=== PATIENT | female | born 1950 | race Caucasian/White ===

== ENCOUNTER 2016-11-28 10:28 | Inpatient (IN) | payer MEDICARE, OTHER ==
[2016-11-14 16:20] LABS: WBC (NOT ORDERED) (RFLEX) 0 (0-5)
[2016-11-14 17:08] LABS: BASOPHILS 0.4 %; BASOPHILS ABSOLUTE 0.04 10/3/uL (0.0-0.16); EOSINOPHILS 3.7 %; EOSINOPHILS ABSOLUTE 0.37 10/3/uL (0.0-0.53); IMMATURE GRANULOCYTES 0.4 %; IMMATURE GRANULOCYTES ABSOLUTE 0.04 10/3/uL (0.0-0.11); LYMPHOCYTES 24.3 %; LYMPHOCYTES ABSOLUTE 2.41 10/3/uL (0.67-4.30); MEAN CORPUS HGB CONC 33.5 g/dL (32.0-36.0); MEAN CORPUSCULAR HEMOGLOB 30.2 pg (26.0-34.0); MEAN PLATELET VOLUME 9.2 fL (9.2-13.0); MONOCYTES 9.3 %; MONOCYTES ABSOLUTE 0.92 10/3/uL (0.21-1.20); NEUTROPHILS 61.9 %; NEUTROPHILS ABSOLUTE 6.14 10/3/uL (2.02-8.40); PLATELET COUNT 289 10/3/uL (150-400); WHITE BLOOD CELLS 9.9 10/3/uL (4.5-10.5)
[2016-11-14 17:10] LABS: HEMATOCRIT 38.2 % (36.0-48.0); HEMOGLOBIN 12.8 g/dL (12.0-16.0); MANUAL DIFF NO %; MEAN CORPUSCULAR VOLUME 90.1 fL (80-100); RED CELL COUNT 4.24 10/6/uL (4.0-5.6)
[2016-11-14 17:16] LABS: INTERNATIONAL NORMAL RATI 1.1 UNITS (-); PROTIME (NOT ORD) 14.2 SEC (12.0-14.5)
[2016-11-14 17:28] LABS: A/G RATIO 0.9 (0.7-1.9); ALBUMIN 3.3 G/DL (3.5-5.0); ALKALINE PHOSPHATASE 72 U/L (45-117); BUN (BLOOD UREA NITROGEN) 16 MG/DL (6-23); CALCIUM, SERUM 8.7 MG/DL (8.5-10.4); CHLORIDE, SERUM 109 MMOL/L (96-112); CO2 (CARBON DIOXIDE) 27 MMOL/L (24-34); CREATININE 1.12 MG/DL (0.55-1.02); GFR AFRICAN AMERICAN 60 ML/MIN (>=60); GFR NON AFRICAN AMERICAN 52 ML/MIN (>=60); GLOBULIN 3.7 G/DL (2.5-4.1); GLUCOSE, SERUM 91 MG/DL (60-99); SGOT(AST) 19 U/L (5-40); SGPT(ALT) 20 U/L (5-65); SODIUM, SERUM 142 MMOL/L (135-148); TOTAL BILIRUBIN 0.2 MG/DL (0-1.2)
[2016-11-14 17:56] LABS: ASCORBIC ACID (UR NOT ORDER) 40 (NEG); BILIRUBIN, URINE NEGATIVE (NEG); KETONE, URINE NEGATIVE (NEG); LEUKOCYTE ESTERASE(NOT OR NEG (NEG)
--- NOTE | ~2016-11-28 | DS ---
Discharge Summary [facility] [address] [place]. [address] NAME: TIFFANIE JIMENEZ : 52 STATUS : DIS IN PAT#: [id number] AGE: 66 ADM/REG DATE : 11/28/16 MR#: [id number] REPORT SERV DATE: 12/14/16 DICTATED BY: MAGGI HARDING DATE: 12/13/16 REPORT STATUS : Draft TRANSCRIBED BY: ABEL DATE: 12/13/16 Data Collection from hospitalization DISCHARGE DIAGNOSES: 1. Severe right knee degenerative joint disease. 2. Hypertension. 3. Former smoker. 4. Gastroesophageal reflux disease. 5. Hypothyroidism. CONSULTATION: Dr. Jordi Hernandez. PROCEDURES PERFORMED: 1. Right posterior stabilized total knee replacement, cemented, 11/28/2016. 2. Cardiac catheterization, 11/30/2016. 3. Myocardial perfusion imaging study, 11/29/2016. PATHOLOGY: Bone and soft tissue, right knee joint arthroplasty-degenerative joint disease with eburnation. MEDICATIONS: Aspirin 81 mg at bedtime, vitamin B12 1000 mcg sublingually daily, Colace 100 mg twice a day, ferrous sulfate 300 mg twice a day, Lasix 20 mg daily, Synthroid 50 mcg every morning, Toprol-XL 50 mg daily, multivitamins one tablet daily, fish oil 1000 mg daily, Prilosec 20 mg daily, Percocet 5/325 one to two tablets every four to six hours as needed, Micro-K 10 mEq as instructed, Zocor 20 mg at bedtime, Diovan 160 mg every morning, Coumadin 2.5 mg one tablet daily. CONDITION AT DISCHARGE: Stable. DISPOSITION: The patient was discharged home on a regular diet with activities as instructed. She would follow up at [facility] in [place], 12/05/2016. She would call my office for a followup appointment. HOSPITAL COURSE: This is a 66-year-old female, who had complained of severe constant bilateral knee pain. X-rays had revealed severe right knee degenerative joint disease. Treatment options were discussed and it was elected to proceed with surgical intervention. She was admitted to the hospital at this time for further evaluation and treatment. Upon admission, she was taken to the operating room, where she underwent the above-mentioned procedure. Intraoperatively, she had a 10-beat run of ventricular tachycardia. Postoperatively, she was seen by Dr. Jordi Hernandez regarding intraoperative nonsustained ventricular tachycardia and left bundle-branch block. The patient denied having any symptoms of chest pain, chest pressure, or palpitations. She had received lidocaine as well as amiodarone. In light of these symptoms as well as intraoperative arrhythmia, he felt that it would be helpful to check a stress myocardial perfusion imaging study as well as an echocardiogram to better define her cardiac status. On postop day one, a myocardial perfusion imaging study was performed. The patient was found to have mild anteroapical ischemia. Post infusion left ventricular ejection fraction was 42%. She had no chest pain, Discharge Summary [address] [address] NAME: TIFFANIE JIMENEZ : 52 STATUS : DIS IN PAT#: [id number] AGE: 66 ADM/REG DATE : 11/28/16 MR#: [id number] REPORT SERV DATE: 12/14/16 DICTATED BY: MAGGI HARDING DATE: 12/13/16 REPORT STATUS : Draft TRANSCRIBED BY: ABEL DATE: 12/13/16 except during the stress test. She did complain of some nausea. It was felt that she would need to undergo a cardiac catheterization. She was held n.p.o. after midnight. She had been evaluated by Occupational and Physical Therapy. On 11/30/2016, she was taken to the [facility], where she underwent the above-mentioned procedure by Dr. Cristobal Pardo. She had normal coronaries. Following day, she was feeling better. Discharge planning was performed. We encouraged her to participate with Physical Therapy. On 12/02/2016, she continued to do well. She had no further dysrhythmias. Discharge instructions were given. Due to her improved and stable condition, she was discharged home with the above-stated instructions. Information collected by: Mimi Jones I submit the above information as my discharge summary. NARDA/ABEL Sabrina Harding M.D. / [id number] CC: W. Cristopher HardingAnel duncan SARA J Vimal Ramjee, MD
--- NOTE | ~2016-11-28 | CN ---
Consultation Report [facility] [address] [place]. [address] NAME: TIFFANIE VÁZQUEZ : 52 STATUS : ADM IN PAT#: [id number] AGE: 66 ADM/REG DATE : 11/28/16 MR#: [id number] REPORT SERV DATE: 11/28/16 DICTATED BY: JORDI BEYER DATE: 11/28/16 REPORT STATUS : Draft TRANSCRIBED BY: MODL DATE: 11/28/16 DATE OF CONSULTATION: 11/28/2016 REASON FOR CONSULTATION: Intraoperative nonsustained VT, left bundle branch block. HISTORY OF PRESENT ILLNESS: Ms. Vázquez is a pleasant 66-year-old female with a history of hypertension, hyperlipidemia, obesity, acid reflux, and hypothyroidism, who presented to [facility] today for an elective right total knee replacement. During the surgical intervention, she had a 10-beat run of nonsustained VT per report (strip not available). She additionally had intermittent left bundle branch block on telemetry and was given lidocaine in the OR as well as amiodarone. She denied having any symptoms of chest pains, chest pressures, or palpitations. She also did not demonstrate any intraoperative hemodynamic instability per my discussion with anesthesia. PAST MEDICAL HISTORY: As above. SOCIAL HISTORY: The patient is and lives with her . She is a former tobacco smoker (approximately 10 to 15 years x1 pack per day). Denies using drugs or abusing alcohol. FAMILY HISTORY: Significant for heart disease in her brother, who had heart surgery, possibly bypass. Mother with heart attack as well as father with an SC in his 50s and sister of an SC at 62. REVIEW OF SYSTEMS: As above, all other systems otherwise negative. HOME MEDICATIONS: 1. Aspirin 81 mg p.o. daily. 2. Lasix 20 mg p.o. daily. 3. Synthroid. 4. Toprol-XL 25 mg p.o. q.a.m. 5. Multivitamin. 6. Fish oil. 7. Prilosec. 8. Potassium. 9. Zocor 20 mg p.o. daily. 10.Vitamin B. 11.Diovan 160 mg p.o. q.a.m. PHYSICAL EXAMINATION: VITAL SIGNS: Blood pressure 188/74, pulse 63 (sinus rhythm), O2 saturation 100% on room air. GENERAL: No acute distress. Well developed, well nourished. Obese. NEURO: Awake, alert and oriented x3; no focal deficits, appropriate mood. Consultation Report [facility] [id number] [place]. [address] NAME: TIFFANIE VÁZQUEZ : 52 STATUS : ADM IN PAT#: [id number] AGE: 66 ADM/REG DATE : 11/28/16 MR#: [id number] REPORT SERV DATE: 11/28/16 DICTATED BY: JORDI BEYER DATE: 11/28/16 REPORT STATUS : Draft TRANSCRIBED BY: ABEL DATE: 11/28/16 HEENT: Moist mucous membranes, anicteric sclerae, no nasal discharge. NECK: No JVD, no carotid bruit. LUNGS: Clear to auscultation bilaterally, no wheezes, rales or rhonchi. CV: Regular rate and rhythm. Normal S1, S2. No murmurs, rubs, or gallops. ABD: Soft, non-tender, non-distended, no rebound or guarding. EXT: Right lower extremity bandaged (status post right total knee replacement), bilateral trace lower extremity edema with compression stocking on. 1+ pulses throughout. SKIN: Warm, dry and intact; no rash. PERTINENT TEST FINDINGS: Potassium 4.0, creatinine 0.1. White blood cell count 9.9, hemoglobin 12.8. Telemetry currently looks sinus rhythm at 66 beats per minute and a narrow complex QRS. An EKG demonstrates sinus bradycardia with left axis deviation voltage criteria for LVH by AVL and lead 1. No ischemic ST/T changes. IMPRESSION AND PLAN: Ms. Vázquez is a pleasant 66-year-old female with a history of hypertension, hyperlipidemia, and hypothyroidism, status post right total knee replacement with intraoperative nonsustained ventricular tachycardia per report and an intermittent left bundle-branch block (possibly rate related), with symptoms of exertional dyspnea over the past few months. In light of the symptoms as well as intraoperative arrhythmia, I believe it will be helpful to check a stress MPI as well as an echocardiogram at this time to better define her cardiac status. Pending these findings, further recommendations will follow. Otherwise, up titration of medications for adequate blood pressure control, and ongoing telemetry monitoring will be appropriate. She does not require amiodarone or lidocaine going forward given that she had spontaneously resolved nonsustained ventricular tachycardia per report in the OR. Should she develop recurrent ventricular arrhythmias, I will reassess her need for this medication. SARAH/MODL Jordi Beyer MD / [id number] CC: Sabrina Handy M.D.
--- NOTE | ~2016-11-28 | OP ---
Record Of Operation [facility] [address] [place]. [address] NAME: TIFFANIE JIMENEZ : 52 STATUS : ADM IN PAT#: [id number] AGE: 66 ADM/REG DATE : 11/28/16 MR#: [id number] REPORT SERV DATE: 11/28/16 DICTATED BY: MAGGI HARDING DATE: 11/28/16 REPORT STATUS : Draft TRANSCRIBED BY: MODL DATE: 11/28/16 DATE OF PROCEDURE: 11/28/2016 PREOPERATIVE DIAGNOSIS: Severe right knee degenerative joint disease. POSTOPERATIVE DIAGNOSIS: Severe right knee degenerative joint disease. OPERATION: Right posterior stabilized total knee replacement, cemented. SIDE: Right. SIZE: See chart. ANESTHESIA: See chart. ESTIMATED BLOOD LOSS: About 10 mL. TOURNIQUET TIME: Approximately 1 hour and 10 minutes. COMPLICATIONS: None. SPECIMENS: Articular surfaces. PROCEDURE: The patient was appropriately identified and marked. The operative side agreed with the consent form and it was checked by all members of the surgical team. The patient was taken to the operating room and anesthesia was induced per the anesthesiologist. The patient was carefully transferred to the operating table without incident. The patient received appropriate prophylactic antibiotics and a Caldwell catheter was placed in the standard sterile technique. The patient was then carefully positioned, padded, prepped and draped in the normal sterile fashion. The operative leg had been appropriately identified and checked by all members of the operating team against the consent form and found to be the correct limb. The patient's lower extremity was then exsanguinated with an Endy wrap and a tourniquet was inflated to 350 mm/Hg. Sharp dissection was carried out through a straight midline longitudinal incision and electrocautery through the fat. Sharp quad splitting approach was carried out between about the medial 10 percent of the tendon and the lateral 90 percent of the tendon and down around the medial aspect of the patella and then 1 cm medial to the tibial tubercle. The patella was carefully everted and the posterior fat pad was excised and gentle MCL elevation was carried out off the proximal medial tibia subperiosteally. IM guide was placed in the distal femur after using the appropriate drill. The distal femoral cutting guide was held with 2 pins and the distal cut made. Meniscal fragments and the ACL and the PCL were excised with electrocautery, carefully staying anterior to the posterior fat pad. The proximal tibial alignment guide was set appropriately and the proximal tibial cut made. Spacer block verified full extension with excellent mediolateral balance. Sizing guide was used to place 2 drill holes in the distal femur and the four-in-one cutting block was then placed, impacted and checked Record Of Operation [facility] [address] [place]. [address] NAME: TIFFANIE JIMENEZ : 52 STATUS : ADM IN PAT#: [id number] AGE: 66 ADM/REG DATE : 11/28/16 MR#: [id number] REPORT SERV DATE: 11/28/16 DICTATED BY: MAGGI HARDING DATE: 11/28/16 REPORT STATUS : Draft TRANSCRIBED BY: ABEL DATE: 11/28/16 to be sure it would not notch with an akash wing and it was held with 2 pins. The anterior cut, posterior cut, anterior chamfer and posterior chamfer cuts were made. The pins were removed and the block was removed. A posterior release was carried out with a curved 3/4 inch osteotome staying right on the bone posteriorly. The box-cut guide was then placed, impacted and held with 2 pins and a reciprocating saw was used to cut out the box. With the trial components in place, there was excellent medial/lateral balance. The patella was then measured with a caliper, cut first with an oscillating saw and then reamed with a patella reamer. With the trial patella in place, there was excellent patellar tracking. Rotation was marked on the tibia and the tibia prepared with a drill and stamp chisel. All surfaces were then copiously irrigated with pulsatile lavage, carefully dried and then vacuum-mixed cement was pressurized with a cement gun in a doughy phase. The tibial component was placed, impacted and excess cement was removed. The cement was then pressurized in the femur and placed on the posterior runners of the femoral component, which was placed, impacted and excess cement removed and the knee was brought out into extension on a trial spacer. The cement was then pressurized in the patella. Patellar component was then placed, clamped and excess cement was removed. Once all cement was hardened, the knee was taken through range of motion. Further extruded cement was removed with a small osteotome. Then based on the trial inserts, we decided on the actual insert, which was placed in the standard fashion and held with a locking mechanism. The knee was then copiously irrigated and then closed in a layered fashion over a medium Hemovac drain superolaterally with interrupted #1 in the deep fascia, 2-0 subcutaneous and praful in the skin. The wounds were dressed sterilely and the tourniquet was deflated. The patient was then awakened and taken to the postanesthesia care unit without incident. All counts were correct at the end of the case. MARCOSB/ABEL Sabrina Harding M.D. / [id number] CC: Sabrina Harding M.D.
[~2016-11-28 10:28] MED LIST: ASAB PO; CITRUCELSF PO; CYANO1000T PO; DIOV160 PO; FISH-EPA1000 MG PO; L20 PO; MICRO-K10 MEQ PO; MOBIC15 MG PO; MULTIPLE VIT PO; MULTIVIT/MIN PO; PRILO PO; PROTONIX PO; RESTASIS OPH; SYN.05 PO; TOPXL25 PO; VITAMIN B-121000 MC1 SL; ZOCOR20 PO
[2016-11-28 15:44] LABS: CPK 48 U/L (0-200); TROPONIN I 0.02 NG/ML (<0.05)
[2016-11-28 15:45] LABS: CK-MB < 0.5 NG/ML
[2016-11-29 06:51] LABS: HEMATOCRIT 35.1 % (36.0-48.0); HEMOGLOBIN 11.7 g/dL (12.0-16.0)
[2016-11-29 06:55] LABS: INTERNATIONAL NORMAL RATI 1.3 UNITS (-); PROTIME (NOT ORD) 15.6 SEC (12.0-14.5)
[2016-11-29 07:05] LABS: CALCIUM, SERUM 8.4 MG/DL (8.5-10.4); CHLORIDE, SERUM 109 MMOL/L (96-112); CO2 (CARBON DIOXIDE) 27 MMOL/L (24-34); CREATININE 1.08 MG/DL (0.55-1.02); GFR AFRICAN AMERICAN 62 ML/MIN (>=60); GFR NON AFRICAN AMERICAN 54 ML/MIN (>=60); GLUCOSE, SERUM 93 MG/DL (60-99); POTASSIUM, SERUM 4.5 MMOL/L (3.5-5.3); SODIUM, SERUM 136 MMOL/L (135-148)
[2016-11-29 07:06] LABS: BUN (BLOOD UREA NITROGEN) 12 MG/DL (6-23)
[2016-11-30 07:03] LABS: BASOPHILS 0.1 %; BASOPHILS ABSOLUTE 0.01 10/3/uL (0.0-0.16); EOSINOPHILS 0.1 %; EOSINOPHILS ABSOLUTE 0.01 10/3/uL (0.0-0.53); HEMATOCRIT 32.7 % (36.0-48.0); IMMATURE GRANULOCYTES 0.4 %; IMMATURE GRANULOCYTES ABSOLUTE 0.06 10/3/uL (0.0-0.11); LYMPHOCYTES 8.9 %; LYMPHOCYTES ABSOLUTE 1.32 10/3/uL (0.67-4.30); MEAN CORPUS HGB CONC 33.6 g/dL (32.0-36.0); MEAN CORPUSCULAR HEMOGLOB 30.2 pg (26.0-34.0); MEAN CORPUSCULAR VOLUME 89.8 fL (80-100); MEAN PLATELET VOLUME 9.2 fL (9.2-13.0); MONOCYTES 7.9 %; MONOCYTES ABSOLUTE 1.17 10/3/uL (0.21-1.20); NEUTROPHILS 82.6 %; NEUTROPHILS ABSOLUTE 12.28 10/3/uL (2.02-8.40); PLATELET COUNT 205 10/3/uL (150-400); RBC DISTRIBUTION WIDTH 13.3 % (12.0-16.0); RED CELL COUNT 3.64 10/6/uL (4.0-5.6)
[2016-11-30 07:06] LABS: MANUAL DIFF NO %; WHITE BLOOD CELLS 14.9 10/3/uL (4.5-10.5)
[2016-11-30 07:08] LABS: INTERNATIONAL NORMAL RATI 1.5 UNITS (-); PROTIME (NOT ORD) 17.8 SEC (12.0-14.5)
[2016-11-30 07:28] LABS: BUN (BLOOD UREA NITROGEN) 14 MG/DL (6-23); CALCIUM, SERUM 8.6 MG/DL (8.5-10.4); CHLORIDE, SERUM 110 MMOL/L (96-112); CHOL/HDL RATIO(NOT ORDER) 2.3 (0-5); CHOLESTEROL 127 MG/DL (< 200); CO2 (CARBON DIOXIDE) 23 MMOL/L (24-34); CREATININE 0.74 MG/DL (0.55-1.02); GFR AFRICAN AMERICAN 99 ML/MIN (>=60); GFR NON AFRICAN AMERICAN 85 ML/MIN (>=60); GLUCOSE, SERUM 107 MG/DL (60-99); HDL CHOLESTEROL 56 MG/DL (> 49); LDL CHOLESTEROL 56 MG/DL (< 130); NON-HDL CHOLESTEROL 71 MG/DL (< 160); POTASSIUM, SERUM 3.9 MMOL/L (3.5-5.3); SODIUM, SERUM 138 MMOL/L (135-148); TRIGLYCERIDE 76 MG/DL (< 150)
[2016-12-01 06:03] LABS: INTERNATIONAL NORMAL RATI 1.5 UNITS (-); PROTIME (NOT ORD) 17.9 SEC (12.0-14.5)
[2016-12-01 06:05] LABS: BASOPHILS 0.3 %; BASOPHILS ABSOLUTE 0.03 10/3/uL (0.0-0.16); EOSINOPHILS 4.1 %; EOSINOPHILS ABSOLUTE 0.43 10/3/uL (0.0-0.53); HEMOGLOBIN 11.6 g/dL (12.0-16.0); IMMATURE GRANULOCYTES 0.3 %; IMMATURE GRANULOCYTES ABSOLUTE 0.03 10/3/uL (0.0-0.11); LYMPHOCYTES 20.7 %; LYMPHOCYTES ABSOLUTE 2.16 10/3/uL (0.67-4.30); MEAN CORPUS HGB CONC 33.1 g/dL (32.0-36.0); MEAN CORPUSCULAR HEMOGLOB 29.8 pg (26.0-34.0); MEAN PLATELET VOLUME 9.2 fL (9.2-13.0); MONOCYTES ABSOLUTE 1.04 10/3/uL (0.21-1.20); NEUTROPHILS 64.6 %; NEUTROPHILS ABSOLUTE 6.75 10/3/uL (2.02-8.40); PLATELET COUNT 192 10/3/uL (150-400); RBC DISTRIBUTION WIDTH 13.8 % (12.0-16.0); RED CELL COUNT 3.89 10/6/uL (4.0-5.6); WHITE BLOOD CELLS 10.4 10/3/uL (4.5-10.5)
[2016-12-01 06:06] LABS: MANUAL DIFF NO %
[2016-12-01 06:08] LABS: BUN (BLOOD UREA NITROGEN) 14 MG/DL (6-23); CALCIUM, SERUM 8.1 MG/DL (8.5-10.4); CHLORIDE, SERUM 111 MMOL/L (96-112); CO2 (CARBON DIOXIDE) 22 MMOL/L (24-34); CREATININE 0.73 MG/DL (0.55-1.02); GFR AFRICAN AMERICAN 100 ML/MIN (>=60); GFR NON AFRICAN AMERICAN 86 ML/MIN (>=60); GLUCOSE, SERUM 86 MG/DL (60-99); SODIUM, SERUM 141 MMOL/L (135-148)
[2016-12-02 06:22] LABS: INTERNATIONAL NORMAL RATI 1.8 UNITS (-); PROTIME (NOT ORD) 20.5 SEC (12.0-14.5)
[2016-12-02] MEDS ORDERED: DSS PO (12:48)
[2016-12-02] MEDS ORDERED: FESO4 PO (12:49)
[2016-12-02] MEDS ORDERED: C25 PO (12:56)
[2016-12-02] MEDS ORDERED: PCET PO (12:57)
[2016-12-02] MEDS ORDERED: TOPXL50 PO (12:58)
== END 2016-12-02 15:22 | disposition home or self-care (01) | DRG 470 ==
LOC: SDC/OF 10:28 → PACU 14:31 → 1SO 15:54
PROVIDERS: Anesthesiology; Specialist; Student in an Organized Health Care Education/Training Program
PROC: 3E0T3CZ (ICD-10-PCS; 2016-11-28)
PROC: 0SRC0J9 Replacement of Right Knee Joint with Synthetic Substitute, Cemented, Open Approach (ICD-10-PCS; principal; 2016-11-28 12:45)
PROC: 4A023N7 Measurement of Cardiac Sampling and Pressure, Left Heart, Percutaneous Approach (ICD-10-PCS; 2016-11-30)
PROC: B2111ZZ Fluoroscopy of Multiple Coronary Arteries using Low Osmolar Contrast (ICD-10-PCS; 2016-11-30)
PROC: B2151ZZ Fluoroscopy of Left Heart using Low Osmolar Contrast (ICD-10-PCS; 2016-11-30)
DX: M17.11 Unilateral primary osteoarthritis, right knee (principal); I47.1 Supraventricular tachycardia; I97.791 Other intraoperative cardiac functional disturbances during other surgery; I10 Essential (primary) hypertension; I44.7 Left bundle-branch block, unspecified; R06.00 Dyspnea, unspecified; Y83.8 Other surgical procedures as the cause of abnormal reaction of the patient, or of later complication, without mention of misadventure at the time of the procedure; E78.5 Hyperlipidemia, unspecified; E66.9 Obesity, unspecified; Z68.37 Body mass index [BMI] 37.0-37.9, adult; K21.9 Gastro-esophageal reflux disease without esophagitis; E03.9 Hypothyroidism, unspecified; Z79.82 Long term (current) use of aspirin; Z79.899 Other long term (current) drug therapy; Z87.891 Personal history of nicotine dependence
CPT/HCPCS: 71020; 78452; 80048; 80053; 80061; 81001; 82550; 82553; 84484; 85014; 85018; 85025; 85610; 87641; 88305; 88311; 93005; 93017; 93306; 93458; 97110-GP; 97116-GP; 97161-GP; 97165-GO; 99152; A9270-GY; A9502; C1769; C1776; C1887; C1894; J0153; J0282; J0360; J0690; J1885; J2250; J2270; J2405; J2795; J3010; Q9967